=== PATIENT | female | born 1990 | race Caucasian/White ===

== ENCOUNTER 2016-09-12 16:58 | Inpatient (IN) | payer BC ==
[2016-09-12] MEDS ORDERED: CALCIUM CARBONATE 500mg Chewable TAB PO ONE (17:20)
[2016-09-12] MEDS ORDERED: LIDOCAINE 1% (10mg/ml) 2ml SDV ID PRN (17:45)
--- NOTE | 2016-09-12 18:12 | PNPDOC ---
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 She denies HAMILTON/scotomata/RUQ pain. Objective Vitals 160s-170s/100s General: Alert and Oriented Objective Comments FHT 120 mod dasia, accels, one variable decel. [place]- quiet (1) 34 weeks gestation of (2) Gestational hypertension Assessment & Plan: Labs ordered- CBC, CMP, 24 hour urine. Discussed with patient and mild vs severe BPs. Her pressures were mildly elevated in the office, but now they are in the severe range. Will give a dose of IV labetolol. If her BPs don't improve, will start magnesium for seizure prophylaxis. Growth sono tomorrow. Betamethasone for lung maturity. Questions answered. WILL GAMBINO MD Sep 12, 2016 18:07
[2016-09-12] MEDS ORDERED: LABETALOL 100mg/20ml INJECTION IV ONE ×2 (18:15→18:20)
[2016-09-12] MEDS ORDERED: BETAMETHASONE 6mg/ml INJECTION IM SCH (18:15)
--- NOTE | 2016-09-12 18:20 | NUR ---
MEDICATION ADMINISTRATION: IV Labetalol 20mg/4ml administered per Dr Martinez's verbal order due to pt's elevated BP.
[2016-09-12 18:22] LABS: HCT - HEMATOCRIT 39.4 % (36-46); HGB - HEMOGLOBIN 13.3 GM/DL (12-16); MEAN CORPUSCULAR HGB 31.1 UUG (26-34); MEAN CORPUSCULAR HGB CONC(MCHC 33.8 GM/DL (31-37); MEAN CORPUSCULAR VOLUME 92.1 UM3 (80-100); MEAN PLATELET VOLUME 12.3 UM3 (9.4-12.4); RED BLOOD COUNT 4.28 M/MM3 (4.00-5.20)
[2016-09-12] MEDS ORDERED: NIFEdipine 10 MG CAPSULE PO ONE (18:30)
[2016-09-12 18:33] LABS: ALBUMIN 3.5 G/DL (3.5-5.0); ALBUMIN/GLOBULIN RATIO 1.1 RATIO (1.1-2.2); ALKALINE PHOSPHATASE 205 U/L (38-126); ALT (SGPT) 36 U/L (9-52); ANION GAP 9 MEQ/L (5-15); AST (SGOT) 41 U/L (14-36); BUN/CREATININE RATIO 21 RATIO (6-26); CALCIUM 9.5 MG/DL (8.4-10.2); CHLORIDE 107 MEQ/L (98-107); CO2 - CARBON DIOXIDE 22 MEQ/L (22-30); CREATININE 0.8 MG/DL (0.7-1.2); GLOMERULAR FILTRATION RATE 85; GLUCOSE 72 MG/DL (65-110); POTASSIUM 5.6 MEQ/L (3.6-5); SODIUM 138 MEQ/L (134-144); TOTAL PROTEIN 6.8 G/DL (6.3-8.2)
[2016-09-12] MEDS ORDERED: MAGNESIUM SULFATE 6 GRAM *MC* 6 G in NORMAL SALINE 50 ML IV PRN (18:45)
[2016-09-12] MEDS ORDERED: CALCIUM GLUCONATE 4.65 MEQ/10 ML INJECTION IV PRN (18:45)
[2016-09-12] MEDS ORDERED: CITRIC ACID/SODIUM CITRATE 30 ML PO PRN (18:45)
[2016-09-12] MEDS ORDERED: MAGNESIUM SULFATE 6 GRAM *MC* 6 G in NORMAL SALINE 50 ML IV ONE (18:45)
[2016-09-12 18:46] LABS: BAND NEUTROPHILS # 0.2 T/MM3; EOSINOPHILS # (MANUAL) 0.3 T/MM3 (0-0.5); MONOCYTES # (MANUAL) 1.5 T/MM3 (0-0.8); NEUTROPHILS #(MANUAL)-ABSOLUTE 10.1 T/MM3 (1.8-7.7); TOTAL CELLS COUNTED 100 %
[2016-09-12] MEDS: LABETALOL 100 MG TABLET PO SCH (18:53)
[2016-09-12] MEDS: MAGNESIUM SULFATE 20 GM DRIP 500 ML IV SCH (19:00)
--- NOTE | 2016-09-12 19:08 | PNPDOC ---
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 One LFT elevated, but specimen was hemolyzed. Her BPs have continued to be in the severe range despite IV and PO labetolol. Prelim sono report- vtx, GARRETT 10, growth OK. (1) 34 weeks gestation of (2) Severe preeclampsia Assessment & Plan: Magnesium sulfate for seizure prophylaxis. Labetolol 200 mg PO Q8 hrs. Will start an induction after 2nd betamethasone given. Questions answered. WILL GAMBINO MD Sep 12, 2016 19:07
[2016-09-12] MEDS ORDERED: MULT-85 (19:18)
[2016-09-12] MEDS ORDERED: CALC500T7 (19:19)
[2016-09-13] VITALS (8 sets, daily range): BP systolic 116–139; BP diastolic 63–74; PULSE 89–101; RESP 16–18; TEMP 97.6–97.8; O2SAT 94–97
[2016-09-13 01:36] LABS: HGB - HEMOGLOBIN 13.1 GM/DL (12-16); MEAN CORPUSCULAR HGB 30.6 UUG (26-34); MEAN CORPUSCULAR HGB CONC(MCHC 33.6 GM/DL (31-37); MEAN CORPUSCULAR VOLUME 91.1 UM3 (80-100); MEAN PLATELET VOLUME 12.3 UM3 (9.4-12.4); RED BLOOD COUNT 4.28 M/MM3 (4.00-5.20); WBC - WHITE BLOOD COUNT 19.8 T/MM3 (4.5-11.0)
[2016-09-13 01:44] LABS: ALBUMIN 3.4 G/DL (3.5-5.0); ALBUMIN/GLOBULIN RATIO 1.1 RATIO (1.1-2.2); ALKALINE PHOSPHATASE 228 U/L (38-126); ALT (SGPT) 35 U/L (9-52); ANION GAP 11 MEQ/L (5-15); AST (SGOT) 31 U/L (14-36); BUN/CREATININE RATIO 16 RATIO (6-26); CALCIUM 8.3 MG/DL (8.4-10.2); CHLORIDE 107 MEQ/L (98-107); CO2 - CARBON DIOXIDE 19 MEQ/L (22-30); CREATININE 0.8 MG/DL (0.7-1.2); GLOMERULAR FILTRATION RATE 85; GLUCOSE 149 MG/DL (65-110); POTASSIUM 4.3 MEQ/L (3.6-5); SODIUM 137 MEQ/L (134-144); TOTAL PROTEIN 6.6 G/DL (6.3-8.2)
[2016-09-13] MEDS: LABETALOL 100 MG TABLET PO SCH ×3 (02:30→11:09)
[2016-09-13] MEDS: MAGNESIUM SULFATE 20 GM DRIP 500 ML IV SCH (03:12)
--- NOTE | 2016-09-13 08:52 | DI ---
Indication: ITS.REASON: Elevated BP PROCEDURE: US OB AGE/ GROWTH: Encounter: Initial Age by provided LMP is 34 weeks and 1 days correlating to an AUGUSTINA of October 23, 2016. Comparison: None PROCEDURE: US OB AGE/ GROWTH: Technique: Grayscale and color Doppler transabdominal sonographic imaging was performed. Findings: There is a single living intrauterine gestation in cephalic lie. Placenta is anterior without previa. Quantity of amniotic fluid is normal. The cervix is normal length and closed. Amniotic fluid index is normal at 10.9 cm. Largest vertical pocket in the left lower quadrant is 3.7 cm. Umbilical artery Doppler tracing reveals a peak systolic velocity of 28.7 cm/sec, end diastolic velocity of 4.89 cm/sec, resistive index of 0.83, pulsatility index of 1.63, S/D ratio of 5.9, and TAPV of 19.7 cm/sec. heart beats regularly at 138 beats per minute. biometry: Biparietal diameter: 8.27 cm 33 weeks and 2 days (23 percentile). Head circumference: 30.22 cm 33 weeks and 4 days (8 percentile). Abdominal circumference: 28.65 cm 32 weeks and 5 days (15 percentile). Femur Length: 6.48 cm 33 weeks and 4 days (22 percentile). biometrics are internally concordant and consistent with an estimated gestational age of 33 weeks and 2 days. Estimated weight is 2105 grams (16 percentile by LMP and 34 percentile by AUA method). Impression: 1. Single living intrauterine gestation with age by provided LMP of 34 weeks and 1 days. This correlates to an AUGUSTINA of October 23, 2016. 2. Best estimate of gestational age on today's exam is 33 weeks and 2 days, correlating to an AUGUSTINA of October 29, 2016. 3. Abnormal cord Doppler values with elevated resistive index, pulsatility index and S/D ratio raising concern for intrauterine distress. .
--- NOTE | 2016-09-13 11:41 | PNPDOC ---
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 Otherwise feeling fine. Good movement. Objective Vitals Vital Signs Date Time Temp Pulse Resp B/P Pulse Ox O2 Delivery O2 Flow Rate FiO2 09/13/16 10:30 96 16 116/74 97 09/13/16 09:30 97.8 Urine Output: Good General: Alert and Oriented Fundus soft, NT Extremities: Non-tender Laboratory Item Value Date Time Hemoglobin 13.1 GM/DL 09/13/16130 Platelet Count 173 T/MM3 09/13/161 Creatinine 0.8 MG/DL 09/13/16130 Aspartate Amino Transf (AST/SGOT) 31 U/L 09/13/161 Alanine Aminotransferase (ALT/SGPT) 35 U/L 09/13/16130 Objective Comments FHT 110, moderate variability [place]- none (1) 34 weeks gestation of Assessment & Plan: 34w2d. (2) Severe preeclampsia Assessment & Plan: Magnesium sulfate for seizure prophylaxis. Labetolol 200 mg PO Q8 hrs. Will start an induction after 2nd betamethasone given. Due to staffing issues, our rn community health has asked that we transport the patient to [place]. This was explained to the patient and her family. I spoke with Dr. Ramirez at [place], and she accepted the transport. WILL GAMBINO MD Sep 13, 2016 11:36
== END 2016-09-13 12:29 | disposition short-term general hospital (02) | DRG 781 ==
LOC: MC 16:58 → OBOBS 16:58 → MC 20:10 → OBOBS 20:10
PROVIDERS: ADMIT Obstetrics & Gynecology; ATTEND Obstetrics & Gynecology
DX: O14.13 Severe pre-eclampsia, third trimester (principal); O99.820 Streptococcus B carrier state complicating pregnancy; O99.343 Other mental disorders complicating pregnancy, third trimester; F32.9 Major depressive disorder, single episode, unspecified; O09.293 Supervision of pregnancy with other poor reproductive or obstetric history, third trimester; Z3A.34 34 weeks gestation of pregnancy
CPT/HCPCS: 36415; 80053; 85025; 85027